=== PATIENT | male | born 1980 | race Caucasian/White ===

== ENCOUNTER 2019-07-04 15:10 | Outpatient (CLI) | payer BC | END 2019-07-04 20:19 | disposition home or self-care (01) | LOC: SRD 15:10 | PROVIDERS: ATTEND Family Medicine | DX: M47.816 Spondylosis without myelopathy or radiculopathy, lumbar region (principal); M41.86 Other forms of scoliosis, lumbar region | CPT/HCPCS: 72110 ==

== ENCOUNTER 2019-10-14 10:36 | Emergency (ER) | payer BC ==
[~2019-10-14] VITALS: Ht 185.4 cm; Wt 74.8 kg
[2019-10-14 10:36] VITALS: BP_SYST 116
--- NOTE | 2019-10-14 10:36 | NUR ---
BLAIRE BACK TO BED #5 AND TRIAGED. REPORT GIVEN TO NUNO
[2019-10-14] MEDS ORDERED: HYDROXYCHLOROQUINE SULFATE 200 MG TABLET PO ONE (10:45)
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
--- NOTE | 2019-10-14 11:00 | NUR ---
ER at bedside examining patient.
--- NOTE | 2019-10-14 11:10 | NUR ---
Patient transported to radiology via ambulatory, accompanied by tech.
[2019-10-14 11:30] VITALS: BP_SYST 116
--- NOTE | 2019-10-14 11:30 | NUR ---
Patient given written and verbal discharge instructions and verbalizes understanding. ER MD discussed with patient the results and treatment provided. Patient in stable condition. ID arm band removed. Rx of Naprosyn given. Patient educated on pain management and to follow up with PMD. Pain Scale 0/10 Opportunity for questions provided and answered. Medication side effect fact sheet provided.
== END 2019-10-14 11:30 | disposition home or self-care (01) ==
LOC: SED 10:36
DX: S20.211A Contusion of right front wall of thorax, initial encounter (principal); Z88.0 Allergy status to penicillin; W22.8XXA Striking against or struck by other objects, initial encounter; Y93.89 Activity, other specified; Y92.89 Other specified places as the place of occurrence of the external cause; Y99.8 Other external cause status
CPT/HCPCS: 71100; 99283

== ENCOUNTER 2020-04-16 09:27 | Emergency (ER) | payer BC ==
[~2020-04-16] VITALS: Ht 185.4 cm; Wt 76.7 kg
[2020-04-16 09:39] VITALS: BP_SYST 131
--- NOTE | 2020-04-16 09:44 | NUR ---
Patient triaged and placed in waiting room. VSS and patient appears in no acute distress at this time. Awaiting available bed, and MD notified of need for MSE.
--- NOTE | 2020-04-16 09:45 | NUR ---
Patient came from home for evaluation of face and jaw pain. [place]
--- NOTE | 2020-04-16 09:48 | NUR ---
ER Dr. Castellanos in waiting room examining patient.
[2020-04-16] MEDS ORDERED: DIPH-TET-PERTUS Vaccine 0.5 ML VIAL (ADACEL) I.M. ONE (11:45)
[2020-04-16 12:13] VITALS: BP_SYST 128
--- NOTE | 2020-04-16 12:13 | NUR ---
Patient given written and verbal discharge instructions and verbalizes understanding. ER MD discussed with patient the results and treatment provided. Patient in stable condition. ID arm band removed. Patient educated on pain management and to follow up with PMD. Pain Scale 0/10. Opportunity for questions provided and answered. Medication side effect fact sheet provided.
== END 2020-04-16 12:13 | disposition home or self-care (01) ==
LOC: SED 09:27
DX: S06.0X1A Concussion with loss of consciousness of 30 minutes or less, initial encounter (principal); Z88.0 Allergy status to penicillin; Y04.2XXA Assault by strike against or bumped into by another person, initial encounter; Y93.89 Activity, other specified; Y92.89 Other specified places as the place of occurrence of the external cause; Y99.8 Other external cause status
CPT/HCPCS: 70450-TC; 70486-TC; 76376; 99285